=== PATIENT | female | born 1985 | race Caucasian/White ===

== ENCOUNTER 2017-10-25 05:35 | Outpatient (CLI) | payer BC ==
[~2017-10-25] VITALS: Ht 172.7 cm; Wt 86.2 kg
== END 2017-10-25 10:52 | disposition home or self-care (01) ==
LOC: PREOP 05:35
PROVIDERS: ATTEND Otolaryngology Otolaryngology/Facial Plastic Surgery
DX: Z01.818 Encounter for other preprocedural examination (principal)

== ENCOUNTER 2017-10-28 06:25 | Day surgery (SDC) | payer BC ==
[~2017-10-28] VITALS: Ht 172.7 cm; Wt 86.2 kg
--- OUTSIDE RECORDS SUMMARY | 2017-10-28 06:29 | XMS REPORT | Clinical Summary ---
Author Author Admin, BOAZ Organization [facility] [employer] Address Unknown Phone Unavailable Allergies, Adverse Reactions, Alerts Allergy Name Reaction Description Start Date Severity Status Provider No Known Allergies Caroline Martinez [facility] Conditions or Problems Problem Name Problem Code Onset Date Status Entry Date Provider Comment Standard Description Annotate Contraceptive prescription, oral agent V25.41 Active Dulce Grimaldo APRN Encounter for surveillance of contraceptive pill Herpes, genital 054.10 Active Dulce Grimaldo APRN Genital herpes, unspecified Screening visit for sexually trans dis V74.5 Active Micki Valenzuela LAWYER REAL ESTATE Screening examination for venereal disease Gynecological examination, routine V72.3 Active Dulce Grimaldo APRN Special investigations and examinations - Gynecological examination Medication List Medication Instructions Start Date Stop Date Generic Name NDC Status Provider Patient Instruction MICRONOR 0.35 MG TAB Take one tablet daily NORETHINDRONE ( CONTRACEPTIVE) 30805662597 Active Dulce Grimaldo MARKETING CLERK Active PRENATABS FA ORAL TABS Take one by mouth daily VIT- FE FUMARATE-FA 85261493704 Active Dulce Grimaldo MARKETING CLERK Active ACYCLOVIR 400 MG TABS 1 pill daily ACYCLOVIR 64604896996 No Longer Active Dulce Obedum MARKETING CLERK Active ACYCLOVIR 400 MG TABS 1 pill daily ACYCLOVIR 400 MG TABS 360745 ACYCLOVIR Inactive Vital Signs Date Name Value Unit Range Description blood pressure, diastolic - 8462-4 67 mm[Hg] BP perez blood pressure, systolic - 8480-6 113 mm[Hg] BP sys height E&M - 8302-2 68.5 [in_us] Bdy height pulse rate E&M - 8867-4 77 /min Heart rate temperature E&M 98.2 [degF] Body temperature weight E&M - 3141-9 187 [lb_av] Weight Measured Diagnostic Results Date Name Value Unit Range Description Lab Report: Chlamydia/GC APTIMA/[id number] - Lab chlamydia DNA probe NOT DETECTED NOT DETECTED Lab Report: Chlamydia/GC APTIMA/[id number] - Microbiology Neisseria gonorrhoeae DNA probe NOT DETECTED NOT DETECTED Procedures Code Procedure Name Date Entry Date Standard Description CPT-PV Prev. Care Visit 16:53:27 WOOD SAWYER
--- OUTSIDE RECORDS SUMMARY | 2017-10-28 06:29 | XMS REPORT | Clinical Summary ---
Author Author Admin, BOAZ Organization [facility] [employer] Address Unknown Phone Unavailable Allergies, Adverse Reactions, Alerts Allergy Name Reaction Description Start Date Severity Status Provider Allergies Unknown Conditions or Problems Problem Name Problem Code Onset Date Status Entry Date Provider Comment Standard Description Annotate Contraceptive prescription, oral agent V25.41 Active Dulce Grimaldo APRN Encounter for surveillance of contraceptive pill Herpes, genital 054.10 Active Dulce Grimaldo APRN Genital herpes, unspecified Screening visit for sexually trans dis V74.5 Active Micki Valenzuela LONG WINDER TENDER Screening examination for venereal disease Medication List Medication Instructions Start Date Stop Date Generic Name NDC Status Provider Patient Instruction MICRONOR 0.35 MG TAB Take one tablet daily NORETHINDRONE ( CONTRACEPTIVE) 48586560632 Active Dulce Grimaldo APRN Active PRENATABS FA ORAL TABS Take one by mouth daily VIT- FE FUMARATE-FA 50987819443 Active Dulce Grimaldo APRN Active ACYCLOVIR 400 MG TABS 1 pill daily ACYCLOVIR 29553178880 Active Dulce Grimaldo APRN Active
--- OUTSIDE RECORDS SUMMARY | 2017-10-28 06:29 | XMS REPORT | Clinical Summary ---
Author Author Admin, BOAZ Organization [facility] [employer] Address Unknown Phone Unavailable Allergies, Adverse Reactions, [...] sexually trans dis V74.5 Active Micki Valenzuela ELECTRICAL INTERN Screening examination for venereal disease Gynecological examination, routine V72.3 Active Dulce Grimaldo APRN Special investigations and examinations - Gynecological examination Medication List Medication Instructions Start Date Stop Date Generic Name NDC Status Provider Patient Instruction MICRONOR 0.35 MG TAB Take one tablet daily NORETHINDRONE ( CONTRACEPTIVE) 63442104379 Active Dulce Clayum COMBER SETTER Active PRENATABS FA ORAL TABS Take one by mouth daily VIT- FE FUMARATE-FA 44649855555 Active Dulce Obedum COMBER SETTER Active ACYCLOVIR 400 MG TABS 1 pill daily ACYCLOVIR 83405351208 Active Dulce Obedum COMBER SETTER Active Vital Signs Date Name Value Unit Range Description blood pressure, diastolic - 8462-4 67 mm[Hg] BP perez blood pressure, systolic - 8480-6 113 mm[Hg] BP sys height E&M - 8302-2 68.5 [in_us] Bdy height pulse rate E&M - 8867-4 77 /min Heart rate temperature E&M 98.2 [degF] Body temperature weight E&M - 3141-9 187 [lb_av] Weight Measured Procedures Code Procedure Name Date Entry Date Standard Description CPT-PV Prev. Care Visit 16:53:27 RN PATIENT CARE
--- OUTSIDE RECORDS SUMMARY | 2017-10-28 06:29 | XMS REPORT | Clinical Summary ---
Author Author Admin, BOAZ Organization [facility] Address Unknown Phone Unavailable Allergies, Adverse Reactions, [...] sexually trans dis V74.5 Active Micki Valenzuela TUB OPERATOR Screening examination for venereal disease Gynecological examination, routine V72.3 Active Dulce Grimaldo APRN Special investigations and examinations - Gynecological examination Medication List Medication Instructions Start Date Stop Date Generic Name NDC Status Provider Patient Instruction MICRONOR 0.35 MG TAB Take one tablet daily NORETHINDRONE ( CONTRACEPTIVE) 16376569825 Active Dulce Grimaldo MASTER DYER Active PRENATABS FA ORAL TABS Take one by mouth daily VIT- FE FUMARATE-FA 90343813366 Active Dulce Clayum MASTER DYER Active ACYCLOVIR 400 MG TABS 1 pill daily ACYCLOVIR 03026032853 No Longer Active Dulce Obedum MASTER DYER Active ACYCLOVIR 400 MG TABS 1 pill daily ACYCLOVIR 400 MG TABS 166256 ACYCLOVIR Inactive Vital Signs Date Name Value [...] Value Unit Range Description Lab Report: Chlamydia/GC APTIMA/[id number] - Lab chlamydia DNA probe NOT DETECTED NOT DETECTED Lab Report: Chlamydia/GC APTIMA/[id number] - Microbiology Neisseria gonorrhoeae DNA probe NOT DETECTED NOT DETECTED Procedures Code Procedure Name Date Entry Date Standard Description CPT-PV Prev. Care Visit 16:53:27 DATA ANALYST ETL DEVELOPER
--- OUTSIDE RECORDS SUMMARY | 2017-10-28 06:29 | XMS REPORT | Clinical Summary ---
Author Author Admin, BOAZ Organization [facility] [employer] Address Unknown Phone Unavailable Allergies, Adverse Reactions, Alerts Allergy Name Reaction Description Start Date Severity Status Provider No Known Allergies Caroline Martinez [facility] Conditions or Problems Problem Name Problem Code Onset Date Status Entry Date Provider Comment Standard Description Annotate Contraceptive prescription, oral agent V25.41 Active Dulce Grimaldo APRN Encounter for surveillance of contraceptive pill Herpes, genital 054.10 Active Dulce Grimaldo APRN Genital herpes, unspecified Screening visit for sexually trans dis V74.5 Active Micki Valenzuela PASTEURISER OPERATOR Screening examination for venereal disease Gynecological examination, routine V72.3 Active Dulce Grimaldo APRN Special investigations and examinations - Gynecological examination Medication List Medication Instructions Start Date Stop Date Generic Name NDC Status Provider Patient Instruction MICRONOR 0.35 MG TAB Take one tablet daily NORETHINDRONE ( CONTRACEPTIVE) 19502398489 Active Dulce Tovarstephanieum MANAGER OF RADIOLOGY Active PRENATABS FA ORAL TABS Take one by mouth daily VIT- FE FUMARATE-FA 13081204054 Active Dulce Obedum MANAGER OF RADIOLOGY Active ACYCLOVIR 400 MG TABS 1 pill daily ACYCLOVIR 93388445983 Active Dulce Obedum MANAGER OF RADIOLOGY Active Vital Signs Date Name Value Unit [...] Standard Description CPT-PV Prev. Care Visit 16:53:27 HEALTH PROMOTION OFFICER
--- OUTSIDE RECORDS SUMMARY | 2017-10-28 06:29 | XMS REPORT | Clinical Summary ---
Author Author Admin, BOAZ Organization [facility] [employer] Address Unknown Phone Unavailable Allergies, Adverse Reactions, Alerts Allergy Name Reaction Description Start Date Severity Status Provider No Known Allergies Caroline Martinez [facility] Conditions or Problems Problem Name Problem Code Onset Date Status Entry Date Provider Comment Standard Description Annotate Contraceptive prescription, oral agent V25.41 Active Dulce Grimaldo APRN Encounter for surveillance of contraceptive pill Herpes, genital 054.10 Active Dulce Grimaldo APRN Genital herpes, unspecified Screening visit for sexually trans dis V74.5 Active Micki Valenzuela BIOINFORMATICS PROGRAMMER Screening examination for venereal disease Gynecological examination, routine V72.3 Active Dulce Grimaldo APRN Special investigations and examinations - Gynecological examination Medication List Medication Instructions Start Date Stop Date Generic Name NDC Status Provider Patient Instruction MICRONOR 0.35 MG TAB Take one tablet daily NORETHINDRONE ( CONTRACEPTIVE) 79548485686 Active Dulce Grimaldo HOME IMPROVEMENT INSTALLER Active PRENATABS FA ORAL TABS Take one by mouth daily VIT- FE FUMARATE-FA 90423876123 Active Dulce Clayum HOME IMPROVEMENT INSTALLER Active ACYCLOVIR 400 MG TABS 1 pill daily ACYCLOVIR 56967079356 No Longer Active Dulce Obedum HOME IMPROVEMENT INSTALLER Active ACYCLOVIR 400 MG TABS 1 pill daily ACYCLOVIR 400 MG TABS 493248 ACYCLOVIR Inactive Vital Signs Date Name Value [...] Value Unit Range Description Lab Report: Chlamydia/GC APTIMA/[id number] - Lab chlamydia DNA probe NOT DETECTED NOT DETECTED Lab Report: Chlamydia/GC APTIMA/[id number] - Microbiology Neisseria gonorrhoeae DNA probe NOT DETECTED NOT DETECTED Procedures Code Procedure Name Date Entry Date Standard Description CPT-PV Prev. Care Visit 16:53:27 PRODUCTION TECHNOLOGIST
--- OUTSIDE RECORDS SUMMARY | 2017-10-28 06:29 | XMS REPORT | Clinical Summary ---
Author Author Admin, BOAZ Organization [facility] [employer] Address Unknown Phone Unavailable Allergies, Adverse Reactions, Alerts Allergy Name Reaction Description Start Date Severity Status Provider No Known Allergies Caroline Martinez [facility] Conditions or Problems Problem Name Problem Code Onset Date Status Entry Date Provider Comment Standard Description Annotate Contraceptive prescription, oral agent V25.41 Active Dulce Grimaldo APRN Encounter for surveillance of contraceptive pill Herpes, genital 054.10 Active Dulce Grimaldo APRN Genital herpes, unspecified Screening visit for sexually trans dis V74.5 Active Micki Valenzuela PROGRAM MANAGER SLP Screening examination for venereal disease Gynecological examination, routine V72.3 Active Dulce Grimaldo APRN Special investigations and examinations - Gynecological examination Medication List Medication Instructions Start Date Stop Date Generic Name NDC Status Provider Patient Instruction MICRONOR 0.35 MG TAB Take one tablet daily NORETHINDRONE ( CONTRACEPTIVE) 54213228483 Active Dulce Grimaldo PROCESS CAMERA OPERATOR Active PRENATABS FA ORAL TABS Take one by mouth daily VIT- FE FUMARATE-FA 75288355502 Active Dulce Clayum PROCESS CAMERA OPERATOR Active ACYCLOVIR 400 MG TABS 1 pill daily ACYCLOVIR 64690493878 No Longer Active Dulce Obedum PROCESS CAMERA OPERATOR Active ACYCLOVIR 400 MG TABS 1 pill daily ACYCLOVIR 400 MG TABS 424069 ACYCLOVIR Inactive Vital Signs Date Name Value [...] Value Unit Range Description Lab Report: Chlamydia/GC APTIMA/[id number] - Lab chlamydia DNA probe NOT DETECTED NOT DETECTED Lab Report: Chlamydia/GC APTIMA/[id number] - Microbiology Neisseria gonorrhoeae DNA probe NOT DETECTED NOT DETECTED Procedures Code Procedure Name Date Entry Date Standard Description CPT-PV Prev. Care Visit 16:53:27 OCCUPATIONAL THERAPY DEPARTMENT CHAIR
--- OUTSIDE RECORDS SUMMARY | 2017-10-28 06:29 | XMS REPORT | Clinical Summary ---
Author Author Admin, BOAZ Organization [facility] [employer] Address Unknown Phone Unavailable Allergies, Adverse Reactions, Alerts Allergy Name Reaction Description Start Date Severity Status Provider No Known Allergies Caroline Martinez [facility] Conditions or Problems Problem Name Problem Code Onset Date Status Entry Date Provider Comment Standard Description Annotate Contraceptive prescription, oral agent V25.41 Active Dulce Grimaldo APRN Encounter for surveillance of contraceptive pill Herpes, genital 054.10 Active Dulce Grimaldo APRN Genital herpes, unspecified Screening visit for sexually trans dis V74.5 Active Micki Valenzuela HEALTH INSURANCE SPECIALIST Screening examination for venereal disease Gynecological examination, routine V72.3 Active Dulce Grimaldo APRN Special investigations and examinations - Gynecological examination Medication List Medication Instructions Start Date Stop Date Generic Name NDC Status Provider Patient Instruction MICRONOR 0.35 MG TAB Take one tablet daily NORETHINDRONE ( CONTRACEPTIVE) 99841535622 Active Dulce Tovarstephanieum BAR CAPTAIN Active PRENATABS FA ORAL TABS Take one by mouth daily VIT- FE FUMARATE-FA 38314228911 Active Dulce Obedum BAR CAPTAIN Active ACYCLOVIR 400 MG TABS 1 pill daily ACYCLOVIR 58239014665 Active Dulce Obedum BAR CAPTAIN Active Vital Signs Date Name Value Unit [...] Description CPT-PV Prev. Care Visit 16:53:27 RN PAIN MANAGEMENT
--- OUTSIDE RECORDS SUMMARY | 2017-10-28 06:29 | XMS REPORT | Clinical Summary ---
Author Author Admin, BOAZ Organization [facility] [employer] Address Unknown Phone Unavailable Allergies, Adverse Reactions, Alerts Allergy Name Reaction Description Start Date Severity Status Provider No Known Allergies Caroline Martinez [facility] Conditions or Problems Problem Name Problem Code Onset Date Status Entry Date Provider Comment Standard Description Annotate Contraceptive prescription, oral agent V25.41 Active Dulce Grimaldo APRN Encounter for surveillance of contraceptive pill Herpes, genital 054.10 Active Dulce Grimaldo APRN Genital herpes, unspecified Screening visit for sexually trans dis V74.5 Active Micki Valenzuela CARD PLAYER Screening examination for venereal disease Gynecological examination, routine V72.3 Active Dulce Grimaldo APRN Special investigations and examinations - Gynecological examination Medication List Medication Instructions Start Date Stop Date Generic Name NDC Status Provider Patient Instruction MICRONOR 0.35 MG TAB Take one tablet daily NORETHINDRONE ( CONTRACEPTIVE) 88970292287 Active Dulce Grimaldo SWING DRIVER Active PRENATABS FA ORAL TABS Take one by mouth daily VIT- FE FUMARATE-FA 72696398589 Active Dulce Clayum SWING DRIVER Active ACYCLOVIR 400 MG TABS 1 pill daily ACYCLOVIR 89085068635 No Longer Active Dulce Obedum SWING DRIVER Active ACYCLOVIR 400 MG TABS 1 pill daily ACYCLOVIR 400 MG TABS 713928 ACYCLOVIR Inactive Vital Signs Date Name Value [...] Value Unit Range Description Lab Report: Chlamydia/GC APTIMA/[id number] - Lab chlamydia DNA probe NOT DETECTED NOT DETECTED Lab Report: Chlamydia/GC APTIMA/[id number] - Microbiology Neisseria gonorrhoeae DNA probe NOT DETECTED NOT DETECTED Procedures Code Procedure Name Date Entry Date Standard Description CPT-PV Prev. Care Visit 16:53:27 WELDER SHIELDED METAL ARC
--- OUTSIDE RECORDS SUMMARY | 2017-10-28 06:30 | XMS REPORT ---
Author Author ART DAVIS [employer] Address Unknown Phone Unavailable Care Team Providers [facility] Risk And Assurance Senior Manager Name Role Phone ART DAVIS CP Unavailable Allergies, Adverse Reactions, Alerts Substance Reaction Event Type N.K.D.A. Info Not Available Non Drug Allergy Problems Problem Type Condition Code Onset Dates Condition Status Assessment Dental examination Z01.20 Active Problem Dental examination V72.2 Active Medications No Known Medications Procedures Procedure Coding System Code Date PROPHYLAXIS - ADULT CPT-4 D1110 Apr 09, 2015 PERIODIC ORAL EXAMINATION CPT-4 D0120 Apr 09, 2015 Vital Signs Date/Time: Apr 09, 2015 Blood Pressure Diastolic 78 mmHg Blood Pressure Systolic 121 mmHg Results No Known Results Summary Purpose [employer] Submission
--- OUTSIDE RECORDS SUMMARY | 2017-10-28 06:30 | XMS REPORT | Clinical Summary ---
Author Author Admin, BOAZ Organization [facility] [employer] Address Unknown Phone Unavailable Allergies, Adverse Reactions, Alerts Allergy Name Reaction Description Start Date Severity Status Provider No Known Allergies Caroline Martinez [facility] Conditions or Problems Problem Name Problem Code Onset Date Status Entry Date Provider Comment Standard Description Annotate Contraceptive prescription, oral agent V25.41 Active Dulce Grimaldo APRN Encounter for surveillance of contraceptive pill Herpes, genital 054.10 Active Dulce Grimaldo APRN Genital herpes, unspecified Screening visit for sexually trans dis V74.5 Active Micki Valenzuela ASPNET DEVELOPER Screening examination for venereal disease Gynecological examination, routine V72.3 Active Dulce Grimaldo APRN Special investigations and examinations - Gynecological examination Medication List Medication Instructions Start Date Stop Date Generic Name NDC Status Provider Patient Instruction MICRONOR 0.35 MG TAB Take one tablet daily NORETHINDRONE ( CONTRACEPTIVE) 78595541246 Active Dulce Tovarstephanieum INVERTEBRATE PALEONTOLOGIST Active PRENATABS FA ORAL TABS Take one by mouth daily VIT- FE FUMARATE-FA 77846844327 Active Dulce Obedum INVERTEBRATE PALEONTOLOGIST Active ACYCLOVIR 400 MG TABS 1 pill daily ACYCLOVIR 97482557084 Active Dulce Obedum INVERTEBRATE PALEONTOLOGIST Active Vital Signs Date Name Value Unit [...] Standard Description CPT-PV Prev. Care Visit 16:53:27 SKEIN DYER
[2017-10-28] MEDS ORDERED: LACTATED RINGERS 1,000 ML IV PRN (06:39)
[2017-10-28 07:00] VITALS: BP 123/83
[2017-10-28 07:38] LABS: BASOPHILS % (AUTO) 1 % (0-10); EOSINOPHILS # (AUTO) 0.1 10^3/uL (0.0-0.3); EOSINOPHILS % (AUTO) 1 % (0-10); HEMATOCRIT 41 % (35-52); HEMOGLOBIN 14.5 G/DL (11.5-16.0); LYMPHOCYTES # (AUTO) 2.4 X 10^3 (1.0-4.0); LYMPHOCYTES % (AUTO) 35 % (12-44); MEAN CORPUSCULAR HEMOGLOBIN 31 PG (25-34); MEAN CORPUSCULAR HGB CONC 36 G/DL (32-36); MEAN CORPUSCULAR VOLUME 88 FL (80-99); MEAN PLATELET VOLUME 11.5 FL (7.4-10.4); MONOCYTES # (AUTO) 0.6 X 10^3 (0.0-1.0); MONOCYTES % (AUTO) 9 % (0-12); NEUTROPHILS # (AUTO) 3.7 X 10^3 (1.8-7.8); NEUTROPHILS % (AUTO) 54 % (42-75); PLATELET COUNT 194 10^3/uL (130-400); RED BLOOD COUNT 4.66 10^6/uL (4.35-5.85); RED CELL DISTRIBUTION WIDTH 13.1 % (10.0-14.5); WHITE BLOOD COUNT 6.9 10^3/uL (4.3-11.0)
[2017-10-28] MEDS ORDERED: SEVOFLURANE (ULTANE) 15 ML INHAL SOLN ONE (08:07)
[2017-10-28] MEDS ORDERED: ROCURONIUM 10 MG/ML 5 ML SYRINGE IV ONE (08:07)
[2017-10-28] MEDS ORDERED: ONDANSETRON 4 MG/2 ML (SDV) Z0FRAN ONE (08:07)
[2017-10-28] MEDS ORDERED: PROPOFOL INJECTION 0 ML IV ONE (08:07)
[2017-10-28] MEDS ORDERED: DEXAMETHASONE 10 MG/ML (DECADRON) 1 ML VIAL ONE (08:07)
[2017-10-28] MEDS ORDERED: fentaNYL INJECTION 100 MCG/2 ML AMP ONE (08:08)
[2017-10-28] MEDS ORDERED: MIDAZOLAM 2 MG/2 ML (VERSED) VIAL ONE (08:08)
[2017-10-28] MEDS ORDERED: LIDOCAINE PF 2% 5 ML (XYLOCAINE) VIAL ONE (08:09)
[2017-10-28] MEDS ORDERED: proPOfol 200 MG/20 ML (DIPRIVAN) VIAL IV ONE (08:09)
[2017-10-28] MEDS ORDERED: LIDOCAINE JELLY 2% (XYLOCAINE) 5 ML TUBE ONE (08:22)
--- NOTE | 2017-10-28 08:29 | Progress Note-Pre Operative ---
Pre-Operative Progress Note H&P Reviewed The H&P was reviewed, patient examined and no changes noted. Date Seen by Provider: Oct 28, 2017 Time Seen by Provider: 08:15 Date H&P Reviewed: Oct 28, 2017 Time H&P Reviewed: 08:15 Pre-Operative Diagnosis: Chronic Tonsillitis TIM GARG MD Oct 28, 2017 8:29 am
[2017-10-28] MEDS ORDERED: NS IV 1000 ML 1,000 ML IV SCH (08:57)
--- NOTE | 2017-10-28 08:57 | Progress Note-Post Operative ---
Post-Operative Progess Note Surgeon (s)/Glass Breaker (s) Surgeon TIM GARG MD Glass Breaker n/a Pre-Operative Diagnosis Chronic Tonsillitis Post-Operative Diagnosis same Post-Op Procedure Note Date of Procedure: Oct 28, 2017 Name of Procedure Performed: Tonsillectomy Description & Findings Description and Findings: n/a Anesthesia Type get Estimated Blood Loss minimal Packing none. Specimen(s) collected/removed tonsils TIM GARG MD Oct 28, 2017 8:57 am
[2017-10-28] MEDS ORDERED: APAP 325 MG/10.15 ML LIQ (TYLENOL) UDC PO PRN (09:00)
[2017-10-28] MEDS ORDERED: HYDROcodone/APAP 7.5MG-325 MG/15 ML (LORTAB) UDC PO PRN (09:00)
[2017-10-28] MEDS ORDERED: ONDANSETRON 4 MG/2 ML (SDV) Z0FRAN IVP PRN (09:15)
[2017-10-28] MEDS ORDERED: morphine INJ 10 MG/ML 1ML (SYR OR VIAL) IVP PRN (09:15)
[2017-10-28] MEDS ORDERED: fentaNYL INJECTION 100 MCG/2 ML AMP IVP PRN (09:15)
[2017-10-28] MEDS ORDERED: MEPERIDINE (DEMEROL) INJ 50 MG/ML IVP PRN (09:15)
[2017-10-28 09:55] VITALS: BP 122/79
[2017-10-28 09:56] VITALS: BP 122/79
[2017-10-28 10:25] VITALS: BP 122/84
[2017-10-28] MEDS ORDERED: DEXAINTSOL PO (10:34)
[2017-10-28] MEDS ORDERED: HYDR15SO8 PO (10:34)
[2017-10-28] MEDS ORDERED: TETRACAINESUCKERS MT (10:34)
[2017-10-28] MEDS ORDERED: AMOX250S5 PO (10:34)
[2017-10-28 10:55] VITALS: BP 119/82
--- NOTE | 2017-10-28 15:32 | Anesthesia-General Post-Op ---
General Patient Condition Mental Status/LOC: Same as Preop Cardiovascular: Satisfactory Nausea/Vomiting: Absent Respiratory: Satisfactory Pain: Controlled Complications: Absent Post Op Complications Complications None Follow Up Care/Instructions Patient Instructions None needed. Anesthesia/Patient Condition Patient Condition Patient was seen after the procedure and she was doing well, no complaints, stable vital signs, no apparent adverse anesthesia problems. ANNA MACHADO DO Oct 28, 2017 15:32
== END 2017-10-28 11:55 | disposition home or self-care (01) ==
LOC: SDC 06:25
PROVIDERS: ATTEND Otolaryngology Otolaryngology/Facial Plastic Surgery
DX: J35.01 Chronic tonsillitis (principal)
CPT/HCPCS: 36415; 84703; 85025; 87081; 96365; 96366